=== PATIENT | male | born 1955 | race Caucasian/White ===

== ENCOUNTER 2018-02-22 22:10 | Inpatient (IN) | payer OTHER ==
[~2018-02-22] VITALS: Ht 180.3 cm; Wt 83.9 kg
[~2018-02-22 22:10] MED LIST: ACID CONTROL150 MG PO; Colace PO; Diovan PO; Flexeril PO; OXYCODONE HCL10 MG PO; Percocet 7.5/325,End PO; PriLOSEC PO; TRILIPIX45 MG PO; ZOCOR40 MG PO
[2018-02-23] MEDS ORDERED: LISINOPRIL40 MG PO (10:03)
[2018-02-23 10:05] VITALS: BP 120/85
[2018-02-23 20:10] VITALS: BP 99/67
[2018-02-23 23:19] VITALS: BP 114/63
[2018-02-24 04:33] VITALS: BP 113/70
[2018-02-24 08:04] VITALS: BP 128/79
[2018-02-24] MEDS ORDERED: OXYCODONE HCL5 MG PO (09:04)
[2018-02-24] MEDS ORDERED: DIAZEPAM10 MG PO (09:04)
[2018-02-24 11:06] VITALS: BP 125/74
== END 2018-02-24 16:50 | disposition home or self-care (01) | DRG 460 ==
LOC: ENRESERV 22:10 → 2SOUTH 02-23 08:12 → ENRESERV 02-23 11:46 → 2SOUTH 02-23 11:56 → 3EAST 02-23 17:00
PROC: 0SB40ZZ Excision of Lumbosacral Disc, Open Approach (ICD-10-PCS; principal; 2018-02-23)
PROC: 0SG00J1 Fusion of Lumbar Vertebral Joint with Synthetic Substitute, Posterior Approach, Posterior Column, Open Approach (ICD-10-PCS; principal; 2018-02-23)
PROC: 00NY0ZZ Release Lumbar Spinal Cord, Open Approach (ICD-10-PCS; principal; 2018-02-23)
DX: M53.2X7 Spinal instabilities, lumbosacral region (principal); M46.07 Spinal enthesopathy, lumbosacral region; M51.37 Other intervertebral disc degeneration, lumbosacral region; Z98.1 Arthrodesis status
CPT/HCPCS: 72100; 76000; 86850; 86900; 86901; 86920; J0690; J1100; J1170; J1580; J1885; J2250; J2405; J2710; J3010; J3370; J3480; J7643